=== PATIENT | female | born 1945 | race Caucasian/White ===

== ENCOUNTER 2020-12-10 08:24 | Outpatient (CLI) | payer OTHER ==
[~2020-12-10 08:24] MED LIST: NEURONTIN300 MG; NORVASC2.5 M1; ZESTRIL20 MG
== END 2020-12-10 08:30 | disposition home or self-care (01) ==
LOC: RX STUDY 08:24
PROVIDERS: ATTEND Otolaryngology Plastic Surgery within the Head & Neck
DX: K21.9 Gastro-esophageal reflux disease without esophagitis (principal)

== ENCOUNTER 2023-08-18 08:10 | Emergency (ER) | payer OTHER ==
[~2023-08-18] VITALS: Ht 154.9 cm; Wt 55.3 kg
[2023-08-18] MEDS ORDERED: COZAAR50 MG PO (08:31)
[2023-08-18] MEDS ORDERED: MINERAL OIL 30 ML BLIST.PACK PO ONE (08:45)
[2023-08-18] MEDS ORDERED: MAGNESIUM HYDROXIDE 400 MG/5 ML ML PO ONE (08:45)
[2023-08-18] MEDS ORDERED: LACTULOSE 20 G/30 ML BLIST.PACK PO ONE (08:45)
[2023-08-18] MEDS ORDERED: MIRALAX510 GM PO (18:23)
== END 2023-08-18 20:22 | disposition home or self-care (01) ==
LOC: ER 08:11
DX: K59.00 Constipation, unspecified (principal); R10.9 Unspecified abdominal pain; I10 Essential (primary) hypertension; Z88.0 Allergy status to penicillin; Z88.6 Allergy status to analgesic agent
CPT/HCPCS: 74177; 99284; Q9965

== ENCOUNTER 2024-08-12 16:46 | Emergency (ER) | payer OTHER ==
[~2024-08-12] VITALS: Ht 165.1 cm; Wt 63.5 kg
[~2024-08-12 16:46] MED LIST changes: +COZAAR50 MG PO; +MIRALAX510 GM PO
[2024-08-12] MEDS ORDERED: LEVOTHYROXINE25 MCG (19:48)
[2024-08-12] MEDS ORDERED: CHILDREN'S ASPI81 MG (19:49)
[2024-08-12] MEDS ORDERED: COZAAR100 MG (20:02)
[2024-08-12] MEDS ORDERED: AMLODIPINE-OLM1 EAC2 (20:02)
[2024-08-12] MEDS ORDERED: hydrALAZINE HCL 20 MG VIAL IV ONE (21:00)
[2024-08-12 21:38] LABS: BASO % 0.3 % (0.1-1.2); EOS # 0.14 (0.04-0.54); EOS % 2.0 % (0.7-7.0); LYMPH # 1.76 (1.18-3.74); LYMPH % 25.3 % (19.3-53.1); MEAN PLATELET VOLUME 11.00 fl (9.4-12.4); MONO # 0.43 (0.24-0.82); MONO % 6.2 % (4.7-12.5); NEUT # 4.59 (1.56-6.13); NEUT % 66.1 % (34.0-71.1); RED CELL DISTRIBUTION WIDTH 13.4 % (11.6-14.4)
[2024-08-12 21:53] LABS: INR 1.04
[2024-08-12 22:00] LABS: ALT/SGPT 29 U/L (12-78); AST/SGOT 24 U/L (15-37); LDH 201 U/L (84-246); PHOSPHOKINASE CREATININE 190 U/L (26-192)
[2024-08-12 22:04] LABS: URINE APPEARANCE Clear; URINE BILIRRUBIN Negative (NEGATIVE); URINE BLOOD Negative; URINE COLOR Yellow; URINE GLUCOSE Negative (NEGATIVE); URINE KETONE Trace (NEGATIVE); URINE LEUKOCYTE Small; URINE NITRATE Negative; URINE PROTEIN Negative (NEGATIVE); URINE UROBILINOGEN 0.2 E.U./dl
[2024-08-12 22:07] LABS: URINE BACTERIA 103.1 uL (0.0-1933); URINE EPITHELIAL CELLS 8.4 uL (0.0-38.8); URINE RBC 20.3 uL (0.0-20.8); URINE WBC 23.9 uL (0.0-23.2)
[2024-08-12 22:13] LABS: COVID-19 AG NEGATIVE (NEGATIVE); URINE CAST 0.00 uL (0.0-1.40)
[2024-08-12 22:51] LABS: ALT/SGPT 30.0 U/L (12-78); AST/SGOT 23.0 U/L (15-37); BILIRUBIN TOTAL 0.6 mg/dL (0.3-1.2); BUN CREA RATIO 15.0 (7.0-25.0); CREATININE SERUM 0.71 mg/dL (0.55-1.02); GFR 79.41; GLOBULINA 3.5 G/DL (2.4-3.5); GLUCOSE FASTING 95.0 mg/dL (65-100); OSMOLALITY SERUM 280.0 MOSM/KG (275-295)
[2024-08-12] MEDS ORDERED: ACETAMINOPHEN 500 MG GEL..CAP PO ONE (23:30)
== END 2024-08-13 03:48 | disposition home or self-care (01) ==
LOC: ER 16:46
PROVIDERS: General Practice
DX: I10 Essential (primary) hypertension (principal); R07.89 Other chest pain; Z20.822 Contact with and (suspected) exposure to COVID-19; Z88.6 Allergy status to analgesic agent; Z88.0 Allergy status to penicillin